=== PATIENT | female | born 1960 | race Caucasian/White ===

== ENCOUNTER 2024-02-04 04:01 | Observation (INO) ==
[2024-02-04] MEDS: hydrALAZINE HCL 20 MG/ML VIAL IV STA ×2 (04:44→05:15)
--- NOTE | 2024-02-04 04:51 | Emergency Department Note ---
History of Present Illness General Chief complaint: Hypertension Time Seen by Provider: 02/04/24 04:12 History of Present Illness Maximum Pain Intensity: 8 Patient is a 62-year-old female with past medical history significant for hypertension, dyslipidemia, asthma, who presents to the emergency department accompanied by her for evaluation of jaw pain, headache and hypertension. She states that her symptoms started acutely about 2 hours ago. She states the jaw pain woke her from sleep at 0200. It was a throbbing pain in the left jaw that radiated to the right. She reports a bitemporal headache. The pain was severe enough that it kept her from sleeping. She rated her discomfort a 8/10. suggested that she check her blood pressure, she used a home BP monitor, and her systolic blood pressure was over 200. She took her irbesartan 150 mg at that time. She did not take any additional medications. She did not feel improved and thus presented to the emergency department. She does not have any chest pain. No shortness of breath. No nausea, vomiting, diaphoresis or near syncope. She was visiting in [facility] last week. She reports that she was short on her BP medications and for 2 days, took a half dose, to make her medications last until she returned to [place]. She reports that she has been having some right back and right lower quadrant abdominal pain for the last week but this has gotten better. Recent diagnosis of a kidney stone. She traveled here from [place] at the end of December. She is here with her who is working at the [employer]. She does have a history of hypertension. She does also use hydrochlorothiazide every other day. No cough, hemoptysis or shortness of breath. She was hospitalized with mycoplasma pneumonia couple of months ago. Home Medications Medication Instructions Recorded Confirmed Type LEVOTHYROXINE SODIUM (SYNTHROID) 100 mcg PO DAILY ##0 08/03/15 History Allergies Allergy/AdvReac Type Severity Reaction Status Date / Time latex Allergy Unknown UNKNOWN Verified 08/03/15 23:56 Sulfa (Sulfonamide Allergy Unknown UNKNOWN Verified 08/03/15 23:58 Antibiotics) CONTROL PILLS Allergy Unknown Uncoded 05/27/04 00:24 HEPATITIS B Allergy Unknown Uncoded 05/27/04 00:24 Past Med/Surg History Problem List (Updated 02/04/24 @ 06:57 by Ellie Morrissey) Hypertensive urgency (Acute) Medical History (Updated 02/04/24 @ 06:57 by Ellie Morrissey) Hypothyroidism Asthma Dyslipidemia Hypertension Surgical History (Updated 02/04/24 @ 04:51 by Ellie Morrissey) History of cholecystectomy Social History Smoking Status: Never smoker Preferred Language: Slovak Current Living Situation: Family current occupational status: employed 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 [employer] Feels Safe at Home: Yes Review of Systems A total of 10 systems reviewed and were otherwise negative Physical Exam Vital Signs Vital Signs - 24 hr 02/04/24 04:05 02/04/24 04:09 02/04/24 04:43 Temperature 36.5 C Temperature Source Temporal Artery Scan Pulse Rate 80 67 Pulse Rate [Apical] 69 Pulse Rate from SpO2 Sensor Pulse Rhythm Pulse Rhythm [Apical] Pulse Strength [Apical] Respiratory Rate 18 18 Respiratory Effort / Characteristics Non-Labored Non-Labored Spontaneous Respiratory Depth Normal Normal Respiratory Pattern Regular Blood Pressure 202/130 H Blood Pressure [Right Arm] 212/124 H Blood Pressure Mean 154 Blood Pressure Mean [Right Arm] 153 Blood Pressure Position [Right Arm] Lying Pulse Oximetry 96 94 Oxygen Delivery Method Room Air Room Air Sepsis Recent Fever Within 48 Hours Yes Sepsis New/Unexplained Change in Mental Status No Sepsis Action Taken by Nursing No Action Required 02/04/24 05:05 02/04/24 05:09 02/04/24 05:33 Temperature Temperature Source Pulse Rate 67 65 66 Pulse Rate [Apical] Pulse Rate from SpO2 Sensor 65 63 Pulse Rhythm Regular Pulse Rhythm [Apical] Pulse Strength [Apical] Respiratory Rate 24 22 Respiratory Effort / Characteristics Respiratory Depth Respiratory Pattern Blood Pressure 227/107 H 172/92 H Blood Pressure [Right Arm] Blood Pressure Mean 147 118 Blood Pressure Mean [Right Arm] Blood Pressure Position [Right Arm] Pulse Oximetry 96 95 95 Oxygen Delivery Method Room Air Room Air Room Air Sepsis Recent Fever Within 48 Hours Sepsis New/Unexplained Change in Mental Status Sepsis Action Taken by Nursing 02/04/24 05:51 02/04/24 06:42 02/04/24 07:11 Temperature Temperature Source Pulse Rate 65 Pulse Rate [Apical] 91 H Pulse Rate from SpO2 Sensor 62 Pulse Rhythm Pulse Rhythm [Apical] Regular Pulse Strength [Apical] Normal Respiratory Rate 15 24 18 Respiratory Effort / Characteristics Non-Labored Respiratory Depth Normal Respiratory Pattern Regular Blood Pressure 160/93 H Blood Pressure [Right Arm] 164/103 H Blood Pressure Mean 115 Blood Pressure Mean [Right Arm] 123 Blood Pressure Position [Right Arm] Lying Pulse Oximetry 94 98 Oxygen Delivery Method Room Air Sepsis Recent Fever Within 48 Hours Sepsis New/Unexplained Change in Mental Status Sepsis Action Taken by Nursing CONSTITUTIONAL: Mildly uncomfortable but otherwise well-appearing 63-year-old female laying on the gurney. is at the bedside. Blood pressures are in the 200/100 systolic. EYES: Pupils equal, round, reactive to light and accommodation. EOMs intact without nystagmus. Sclera are anicteric. ENT: Tympanic membranes intact, with normal landmarks. External canals are clear. Oral and nasopharynx are clear. Mucous membranes are moist, no lesions, tongue and gums appear normal. NECK: No bruits auscultated. Supple without lymphadenopathy. No thyromegaly. No meningeal signs. Full active range of motion without discomfort. CARDIOVASCULAR: Regular rate and rhythm. No carotid bruits auscultated. No JVD. Peripheral pulses easy to palpable. RESPIRATORY: Breath sounds equal and clear to auscultation. GI: Bowel sounds are present. Abdomen is soft, nontender, nondistended. No organomegaly. No pulsatile masses. No guarding or rebound. MUSCULOSKELETAL: Full range of motion of extremities x 4 with good strength. No cyanosis, edema, joint tenderness or swelling. No deformity. INTEGUMENTARY: No lesions or rash, normal skin turgor. NEUROLOGICAL: Alert, oriented, and cooperative. Cranial nerves, sensation and strength grossly intact. Normal gait. Course Course The patient was seen and assessed as above. External medical records are reviewed. She has no old records at our facility for comparison. She presents the emergency department for evaluation of hypertension, jaw pain and headache. She is markedly hypertensive upon arrival. IV lock was initiated and laboratory studies were collected. CBC with differential, CMP, TSH, troponin and urinalysis were collected. EKG and chest x-ray were obtained. Noncontrast CT scan of the head was performed. Patient was ordered hydralazine 10 mg IV x 2. Patient discussed with Dr. Diaz attending physician. Diagnostics, as interpreted by me: Laboratory studies: Normal white count 8000 without left shift. No anemia. No thrombocytopenia. No significant electrolyte imbalance. Renal functions are normal. No transaminitis. Initial high-sensitivity troponin within normal limits. TSH is indicative of a euthyroid state. Urine microscopy notes hematuria. ECG: Normal sinus rhythm, 69 bpm. Incomplete right bundle tony block. Nonspecific ST segment abnormalities. No acute ischemic changes. No old EKGs available for review. Cardiac Monitoring: Cardiac monitoring: An order was placed for continuous cardiac monitoring. The monitor shows a NSR in the 60s per my interpretation. Imaging studies: Chest x-ray clear, no consolidation or effusion. CT scan of the head without contrast no mass or bleed. Nursing staff contacted me when patient was brought back from CT that she was feeling nauseous. She was ordered Zofran 4 mg IV. She had persistent nausea and dry heaves after the first dose of Zofran was given second dose of Zofran 4 mg IV. Blood pressure did respond to the hydralazine, was running in the 160s over 90s. Patient was reassessed. She was feeling "woozy" and while headache was a little bit better she is still having jaw pain. She is having some nausea from postnasal drip. I did review test results with her and her spouse. A second, 2-hour troponin was collected at 0630, and is pending at the time of dictation. While blood pressure has improved, she is still symptomatic. Symptoms and presentation are concerning enough that I feel that she would benefit from inpatient care/evaluation. She was in agreement. Patient discussed with ED patient case coordinator and [facility]. Patient was reviewed with Dr. Zhong, he will sign out to the [facility] hospitalist. Differential diagnosis: acute myocardial infarction, acute coronary syndrome, cardiomyopathy, congestive heart failure, asthma exacerbation, acute intracranial bleed, hypertensive urgency/emergency, electrolyte/metabolic/endocrinologic abnormality, among others. Administered Medications Discontinued Medications Hydralazine HCl (Hydralazine Hcl 20 Mg/Ml Vial) 10 mg IV ONCE STA Stop: 02/04/24 04:36 Last Admin: 02/04/24 04:44 Dose: 10 mg Documented By: Hydralazine HCl (Hydralazine Hcl 20 Mg/Ml Vial) 10 mg IV NOW STA Stop: 02/04/24 05:13 Last Admin: 02/04/24 05:15 Dose: 10 mg Documented By: Ondansetron HCl (Ondansetron Inj 2 Mg/Ml 2 Ml Vial) 4 mg IV NOW STA Stop: 02/04/24 05:29 Last Admin: 02/04/24 05:32 Dose: 4 mg Documented By: TRISTIAN Ondansetron HCl (Ondansetron Inj 2 Mg/Ml 2 Ml Vial) 4 mg IV NOW STA Stop: 02/04/24 06:25 Last Admin: 02/04/24 06:27 Dose: 4 mg Documented By: Medical Decision Making Differential Diagnosis See ED Course. Medical Records Attestation: I reviewed the patient's medical records. Home Medications Current Medication List: was personally reviewed by me Laboratory Data Attestation: I reviewed the patient's lab results. 02/04/24 04:33 02/04/24 04:33 Lab Results 02/04/24 02/04/24 Range/Units 04:33 04:36 WBC 8.09 (4.8-10.8) K/ul RBC 4.47 (4.20-5.40) M/uL Hgb 13.8 (12.0-16.0) g/dl Hct 39.3 (37.0-47.0) % MCV 87.9 (80.0-100.0) fL MCH 30.9 (25.0-34.0) pg MCHC 35.1 (32.0-36.0) g/dL RDW Std Deviation 44.7 (36.4-46.3) fL RDW Coeff of Tyson 15.9 H (11.5-14.5) % Plt Count 278 (130-400) K/uL MPV 9.8 (9.4-12.4) fL Immature Gran % (Auto) 0.2 % Neut % (Auto) 67.2 % Lymph % (Auto) 20.0 % Tompkins % (Auto) 12.0 % Eos % (Auto) 0.0 % Baso % (Auto) 0.6 % Neut # (Auto) 5.43 (1.40-6.50) K/uL Lymph # (Auto) 1.62 (1.20-3.40) K/uL Tompkins # (Auto) 0.97 H (0.11-0.59) K/uL Eos # (Auto) 0.00 (0.00-0.50) K/uL Baso # (Auto) 0.05 (0.00-0.20) K/uL Immature Gran # (Auto) 0.02 (0.01-0.20) K/uL Sodium 138 (136-145) mmol/L Potassium 3.7 (3.5-5.1) mmol/L Chloride 103 (98-107) mmol/L Carbon Dioxide 27 (21-32) mmol/L Anion Gap 8 (3-11) BUN 16 (6-23) mg/dl Creatinine 0.67 (0.6-1.2) mg/dl Est Cr Clr Drug Dosing 94.2 ml/min Est GFR ( Amer) 107.7 ml/min Est GFR (Non-Af Amer) 92.9 ml/min BUN/Creatinine Ratio 23.9 H (10-20) Glucose 117 H (70-99(Fasting)) mg/dl Calcium 9.9 (8.6-10.3) mg/dl Total Bilirubin 0.6 (0.2-1.0) mg/dl AST 32 (13-39) U/L ALT 40 (7-52) U/L Alkaline Phosphatase 141 H (34-104) U/L Troponin I High Sens 2.8 (0-14) pg/ml Total Protein 8.1 (6.0-8.3) gm/dl Albumin 4.7 (3.4-5.0) gm/dl Globulin 3.4 (2.5-4.0) gm/dl Albumin/Globulin Ratio 1.4 (0.9-2) TSH 2.427 (0.300-4.500) uIu/ml Urine Color Yellow Urine Appearance Clear (Clear) Urine pH 6.0 (4.5-7.5) Ur Specific [place] 1.012 (1.000-1.030) Urine Protein 1+ H (Negative) Urine Glucose (UA) Negative (Negative) Urine Ketones Negative (Negative) Urine Blood 2+ H (Negative) Urine Nitrite Negative (Negative) Urine Bilirubin Negative (Negative) Urine Urobilinogen Negative (Negative) Ur Leukocyte Esterase Negative (Negative) Urine WBC (Auto) 0-5 (0-5) /hpf Urine RBC (Auto) 11-20 H (0-2) /hpf U Hyaline Cast (Auto) 0-2 (0-2) /lpf U Epithel Cells (Auto) 0-2 (0-2) /hpf Urine Bacteria (Auto) None Seen (None Seen) Imaging Data Attestation: I personally reviewed and interpreted this imaging study as follows: Radiologist's Impression: Head CT 02/04/24 04:54 Exam(s): CT HEAD Without Contrast EXAM: CT Head Without Intravenous Contrast CLINICAL HISTORY: Reason for exam: headache, hypertension. TECHNIQUE: Axial computed tomography images of the head/brain without intravenous contrast. Automated exposure control was utilized for the study. A dose lowering technique was utilized adhering to the principles of ALARA. COMPARISON: No relevant prior studies available. FINDINGS: Brain: Unremarkable. No hemorrhage. No significant white matter disease. No edema. Ventricles: Unremarkable. No ventriculomegaly. Bones/joints: Unremarkable. No acute fracture. Soft tissues: Unremarkable. Sinuses: Unremarkable as visualized. No acute sinusitis. Mastoid air cells: Unremarkable as visualized. No mastoid effusion. IMPRESSION: Normal head/brain CT. Electronically signed by: Silvino Terrell MD 02/04/24 06:38 AM MDM Narrative See ED Course. Impression & Plan Hypertensive urgency Discharge Plan Visit Data Chief Complaint: Hypertension ED Provider: Mary Diaz ED Midlevel Provider: Ellie Morrissey Discharge Problem: Hypertensive urgency Patient Disposition: Being Evaluated by Hospitalist Forms Stand Alone Forms: My [facility] Jade Magnet Prescriptions Prescriptions: No Action LEVOTHYROXINE SODIUM (SYNTHROID) 100 MCG tablet 100 mcg PO DAILY Qty: 0 Referrals Referrals: PCP,NO [Primary Care Provider] -
[2024-02-04 05:03] LABS: Basophils # (auto) 0.05 K/uL (0.00-0.20); Basophils % (auto) 0.6 %; Hematocrit (blood only) 39.3 % (37.0-47.0); Hemoglobin 13.8 g/dl (12.0-16.0); Immature Granulocytes # (auto) 0.02 K/uL (0.01-0.20); Immature Granulocytes % (auto) 0.2 %; Lymphocytes # (auto) 1.62 K/uL (1.20-3.40); Mean Corpuscular Hemoglobin 30.9 pg (25.0-34.0); Mean Corpuscular Hgb Conc 35.1 g/dL (32.0-36.0); Mean Corpuscular Volume 87.9 fL (80.0-100.0); Mean Platelet Volume 9.8 fL (9.4-12.4); Monocytes # (auto) 0.97 K/uL (0.11-0.59); Neutrophils # (auto) 5.43 K/uL (1.40-6.50); Neutrophils % (auto) 67.2 %; Platelet Count 278 K/uL (130-400); RDW Coefficient of Variation 15.9 % (11.5-14.5); RDW Standard Deviation 44.7 fL (36.4-46.3); Red Blood Count 4.47 M/uL (4.20-5.40); White Blood Count 8.09 K/ul (4.8-10.8)
[2024-02-04 05:05] LABS: Appearance Urine Clear (Clear); Bacteria Urine Automated None Seen (None Seen); Bilirubin Urine Negative (Negative); Blood Urine 2+ (Negative); Cast Urine Automated 0-2 /lpf (0-2); Color Urine Yellow; Epithelial Cell Urine Auto 0-2 /hpf (0-2); Glucose Urine UA Negative (Negative); Ketones Urine Negative (Negative); Leukocyte Esterase Urine Negative (Negative); Nitrite Urine Negative (Negative); Protein Urine 1+ (Negative); Specific Gravity Urine 1.012 (1.000-1.030); Urobilinogen Urine Negative (Negative); WBC Urine Automated 0-5 /hpf (0-5)
[2024-02-04 05:21] LABS: Albumin Globulin Ratio 1.4 (0.9-2); Albumin Level 4.7 gm/dl (3.4-5.0); BUN Creatinine Ratio 23.9 (10-20); Bilirubin,Total 0.6 mg/dl (0.2-1.0); Calcium 9.9 mg/dl (8.6-10.3); Creatinine Clr Calc Pharmacy 94.2 ml/min; Est GFR (African American) 107.7 ml/min; Est GFR (Non-African American) 92.9 ml/min; Globulin 3.4 gm/dl (2.5-4.0); Potassium 3.7 mmol/L (3.5-5.1); Total Protein 8.1 gm/dl (6.0-8.3)
[2024-02-04 05:26] LABS: Troponin I High Sensitivity 2.8 pg/ml (0-14)
[2024-02-04] MEDS: ONDANSETRON INJ 2 MG/ML 2 ML VIAL IV STA ×2 (05:32→06:27)
[2024-02-04 05:36] LABS: Thyroid Stimulating Hormone 2.427 uIu/ml (0.300-4.500)
--- NOTE | 2024-02-04 06:39 | CT Scan Report ---
Exam(s): CT HEAD Without Contrast EXAM: CT Head Without Intravenous Contrast CLINICAL HISTORY: Reason for exam: headache, hypertension. TECHNIQUE: Axial computed tomography images of the head/brain without intravenous contrast. Automated exposure control was utilized for the study. A dose lowering technique was utilized adhering to the principles of ALARA. COMPARISON: No relevant prior studies available. FINDINGS: Brain: Unremarkable. No hemorrhage. No significant white matter disease. No edema. Ventricles: Unremarkable. No ventriculomegaly. Bones/joints: Unremarkable. No acute fracture. Soft tissues: Unremarkable. Sinuses: Unremarkable as visualized. No acute sinusitis. Mastoid air cells: Unremarkable as visualized. No mastoid effusion. IMPRESSION: Normal head/brain CT. Electronically signed by: Silvino Terrell MD 02/04/24 06:38 AM
--- NOTE | 2024-02-04 08:06 | XRay Report ---
XR chest 1V portable HISTORY: 63 years-old Female Hypertension COMPARISON: 08/04/2015 TECHNIQUE: AP view of the chest FINDINGS: Cardiomediastinal and hilar silhouettes are within normal limits. Lungs are clear. No pneumothorax or pleural effusion. Spondylotic spurring of the spine. IMPRESSION: No acute process. ACT 112: Negative or not required by law. The above report was generated using voice recognition software. It may contain grammatical, syntax o r spelling errors. Electronically signed by: Kirby Aragon M.D. 02/04/2024 8:05 AM
[2024-02-04] MEDS ORDERED: ALBUTEROL HFA 8 GM INHALER INH PRN (08:10)
--- NOTE | 2024-02-04 08:22 | History & Physical Report ---
Date of Service February 04, 2024 Assessment & Plan (1) Hypertensive urgency: (2) Atypical angina: (3) Asthma: Plan Patient presents with uncontrolled hypertension with evidence of endorgan symptoms. Also patient may have some symptoms of atypical angina over the last several weeks. Patient is a high risk for acute coronary syndrome based on her history. Patient needs hospital level monitoring and further interventions Admit to a monitored unit Monitor on telemetry Increase irbesartan dosing as well as hydrochlorothiazide dosing to 325 mg respectively Add Norvasc for better blood pressure control Echocardiogram in the morning Stress test in the morning Continue her home Synthroid Continue inhalers as needed Check lipid profile and hemoglobin A1c History of Present Illness Chief Complaint: Acute headache, jaw pain, shortness of breath Primary Care Provider: NO PCP Patient is a 63-year-old female with known history of hypertension presents to the emergency room after being awakened from sleep with severe jaw pain and headache. In the emergency department was noted to have severe hypertension. She was treated with hydralazine in the emergency room. Her symptoms improved but still was quite weakened and fatigued and referred for further evaluation. Time my evaluation patient is quite drowsy. Essentially fatigued from the events of this morning. She states that her headache and jaw pain has improved. She reports that over the past 6 weeks she has been having some intermittent symptoms. She was treated for a "mycoplasma pneumonia" about 6 weeks ago. Never really felt that she improved from that. She does admit to some dyspnea on exertion ever since then. She states sometime earlier this year she had an episode where she had some significant palpitations and chest discomfort. She did not seek medical attention at that time. Family history of arrhythmias but no known history of heart attack within her family. She is herself has never had a stress test or echocardiogram. She does have known hypertension. She reports that has been difficult to control recently. She also reports that last week she was in [place] did not take enough of her pills and only took a half dose of her irbesartan for a couple days. Patient is here in [place] visiting from [place]. Apparently they traveled back and forth fairly frequently. She does not have any established physicians here in [place]. She does have a history of kidney stones and hypothyroidism. She denies any swelling in her legs. She states her appetite has been good. She denies any problems with her bowels or bladder. She denies any fever or chills. She does admit to some paroxysmal nocturnal dyspnea. No orthopnea. Allergies Allergy/AdvReac Type Severity Reaction Status Date / Time latex Allergy Unknown UNKNOWN Verified 08/03/15 23:56 Sulfa (Sulfonamide Allergy Unknown UNKNOWN Verified 08/03/15 23:58 Antibiotics) CONTROL PILLS Allergy Unknown Uncoded 05/27/04 00:24 HEPATITIS B Allergy Unknown Uncoded 05/27/04 00:24 Home Medications Medication Instructions Recorded Confirmed Type LEVOTHYROXINE SODIUM (SYNTHROID) 100 mcg PO DAILY ##0 08/03/15 History Past Med/Surg History Problem List (Updated 02/04/24 @ 08:20 by Jay Jay [place] DO) Atypical angina Hypertensive urgency (Acute) Medical History Hypothyroidism Asthma Dyslipidemia Hypertension Surgical History History of cholecystectomy Social History Smoking Status: Never smoker Preferred Language: Indonesian Current Living Situation: Family current occupational status: employed 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 Sclera clear Neck: Soft, no adenopathy Lungs: Clear to auscultation, decreased, no wheezes rales or rhonchi, CV: S1-S2, regular, no murmur Abdomen: Soft, nontender, nondistended Extremities: No significant edema Musculoskeletal: No significant joint tenderness Neuro: No focal deficits Psych: Cooperative, normal mood Results & Data Results & Data Vital Signs (Past 12 Hours) Vital Signs Temp Pulse Pulse Resp BP BP Pulse Ox 02/04/24 07:11 91 H 18 164/103 H 98 02/04/24 06:42 24 02/04/24 05:51 65 15 160/93 H 94 02/04/24 05:33 66 22 172/92 H 95 02/04/24 05:09 65 24 227/107 H 95 02/04/24 05:05 67 96 02/04/24 04:43 69 18 212/124 H 94 02/04/24 04:09 67 02/04/24 04:05 36.5 C 80 18 202/130 H 96 O2 Del Method 02/04/24 07:11 Room Air 02/04/24 06:42 02/04/24 05:51 02/04/24 05:33 Room Air 02/04/24 05:09 Room Air 02/04/24 05:05 Room Air 02/04/24 04:43 Room Air 02/04/24 04:09 02/04/24 04:05 Room Air Diagnostic Findings Reviewed imaging, laboratory and diagnostic studies. Pertinent findings as below. Personally reviewed EKG sinus rhythm, incomplete right bundle branch block. This is new when compared to [address]-T wave changes Personally reviewed chest x-ray no acute focal infiltrates Head CT unremarkable Troponins negative x 2 TSH therapeutic CBC and electrolytes unremarkable Glucose 141
[2024-02-04 08:49] LABS: Chol HDL Ratio 3.1 (0-5)
[2024-02-04 08:58] LABS: Estimated Average Glucose 120 mg/dl; Hemoglobin A1C 5.8 % (4.5-5.6)
[2024-02-04] MEDS: ASPIRIN 81 MG ECTAB PO ONE (11:07)
[2024-02-04] MEDS ORDERED: ALUMINUM/MAGNESIUM SUSP 30 ML UDC PO PRN (11:19)
[2024-02-04] MEDS ORDERED: NITROGLYCERIN SL 0.4 MG/TAB TAB SL PRN (11:19)
[2024-02-04] MEDS ORDERED: hydrALAZINE HCL 20 MG/ML VIAL IV PRN (11:19)
[2024-02-04] MEDS ORDERED: MoRPHine SULFATE 2 MG/ML CARP IV PRN (11:19)
[2024-02-04] MEDS: ACETAMINOPHEN 325 MG TAB PO PRN (11:46)
[2024-02-04] MEDS: hydroCHLOROthiazide 25 MG TAB PO SCH (11:47)
[2024-02-04] MEDS: LEVOTHYROXINE SODIUM 100 MCG TABLET PO SCH (11:47)
[2024-02-04] MEDS: ATORVASTATIN 20 MG TAB PO ONE (11:47)
[2024-02-04] MEDS: amLODIPine BESYLATE 5 MG TAB PO SCH (11:47)
[2024-02-04] MEDS: LOSARTAN POTASSIUM 50 MG TAB PO SCH (11:49)
--- NOTE | 2024-02-04 14:49 | Electrocardiogram Report ---
Test Reason : Blood Pressure : / mmHG Vent. Rate : 069 BPM Atrial Rate : 069 BPM P-R Int : 160 ms QRS Dur : 108 ms QT Int : 390 ms P-R-T Axes : 031 -05 019 degrees QTc Int : 417 ms Normal sinus rhythm Incomplete right bundle branch block Minimal voltage criteria for LVH, may be normal variant Nonspecific ST abnormality Abnormal ECG When compared with ECG of 03-AUG-2015 23:35, Incomplete right bundle branch block is now Present Confirmed by Conner Christnia ([id number]) on 02/04/2024 2:49:05 PM Referred By: REFERRED SELF Confirmed By:Conner Christina
[2024-02-05] MEDS ORDERED: oxyCODONE HCL IR 5 MG TAB (IMMEDIATE RELEASE) PO PRN (01:36)
[2024-02-05] MEDS: oxyCODONE HCL IR 5 MG TAB (IMMEDIATE RELEASE) PO PRN (01:44)
--- NOTE | 2024-02-05 04:42 | CT Scan Report ---
Exam(s): CT HEAD Without Contrast EXAM: CT Head Without Intravenous Contrast CLINICAL HISTORY: Reason for exam: worsening george, htn. TECHNIQUE: Axial computed tomography images of the head/brain without intravenous contrast. Automated exposure control was utilized for the study. A dose lowering technique was utilized adhering to the principles of ALARA. COMPARISON: Comparison made to prior head CT from February 04, 2024. FINDINGS: Brain: Unremarkable. No hemorrhage. No significant white matter disease. No edema. Ventricles: Unremarkable. No ventriculomegaly. Bones/joints: Unremarkable. No acute fracture. Soft tissues: Unremarkable. Sinuses: Chronic right ethmoid sinusitis. No acute sinusitis. Mastoid air cells: Unremarkable as visualized. No mastoid effusion. IMPRESSION: No evidence of acute intracranial pathology. Electronically signed by: Chantel Kwon MD 02/05/24 04:41 AM
[2024-02-05] MEDS: ASPIRIN 81 MG ECTAB PO SCH (09:00)
[2024-02-05] MEDS: ATORVASTATIN 20 MG TAB PO SCH (09:09)
[2024-02-05] MEDS: ONDANSETRON INJ 2 MG/ML 2 ML VIAL IV PRN (09:26)
[2024-02-05] MEDS ORDERED: LORazepam 0.5 MG TAB PO PRN (12:19)
--- NOTE | 2024-02-05 12:24 | Hospitalist Progress Note ---
Date of Service February 05, 2024 Assessment & Plan (1) Hypertensive urgency: (2) Atypical angina: (3) Asthma: (4) Anxiety about health: (5) Tension headache: (6) Cervical somatic dysfunction: Plan Patient admitted with hypertensive urgency and concerns for atypical angina. Ja w pain is completely resolved. Continue concern for possible atypical angina Echocardiogram showed no significant wall motion abnormalities, unfortunately unable to do stress test today due to fact that patient had some coffee this morning. Strict orders for no caffeine, reschedule stress test for tomorrow Patient's blood pressure is significantly improved with current medical regimen, continue Heating pad for patient's cervical somatic dysfunction and tension headache Ativan as needed for anxiety and tension headache Reassured patient to date her heart continues to look good. She would be much more confident going home if she gets the stress test done here tomorrow. Admission and Anticipated Discharge Date Admission Date: February 04, 2024 Subjective Patient with complaints of classic tension headache type symptoms. Now reports that she rode the [employer] bus from [facility] to [place] and was uncomfortable ride for her. Admits to a lot of stress and anxiety and tension with her travel across the and into [place]. No more jaw pain that has resolved. Physical Exam Physical Exam: Constitutional: Alert HEENT: Mucous membranes moist. Lungs: Clear to auscultation, decreased, no wheezes rales or rhonchi CV: S1-S2, regular Abdomen: Soft, nontender, nondistended Extremities: No significant edema Neuro: No focal deficits Musculoskeletal: Cervical paravertebral musculature tenderness, somatic dysfunction, ropiness, bogginess and decreased range of motion Psych: Cooperative, anxious Results & Data Results & Data Vital Signs (Past 12 Hours) Vital Signs Temp Pulse Resp BP BP Pulse Ox O2 Del Method 02/05/24 11:15 36.8 C 63 17 94 Room Air 02/05/24 08:59 126/87 137/83 02/05/24 07:08 36.7 C 62 18 146/87 H 95 Room Air 02/05/24 03:09 37.0 C 70 18 142/85 H 95 Room Air 02/05/24 00:51 142/89 H Diagnostic Findings Reviewed imaging, laboratory and diagnostic studies. Pertinent findings as below. Repeat head CT negative Echocardiogram, normal ejection fraction, no wall motion abnormalities
[2024-02-05] MEDS: diazePAM 5 MG/ML 10ML VIAL IV STA (15:59)
[2024-02-05] MEDS: SODIUM CHLORIDE 0.9% 1,000 ML IV SCH (15:59)
[2024-02-05] MEDS: dexAMETHasone 6 MG in SYRINGE 0 ML IV ONE (16:07)
[2024-02-05] MEDS: PROCHLORPERAZINE 10 MG in SYRINGE 8 ML IV PRN (16:28)
[2024-02-06] MEDS ORDERED: REGADENOSON 0.4 MG/5 ML SYR IV ONE (09:52)
--- NOTE | 2024-02-06 15:29 | Discharge Summary ---
Discharge Summary Date of Service February 06, 2024 Principal Dx & Hospital Course #1 = Principal Diagnosis (1) Hypertensive urgency: (2) Cervical somatic dysfunction: (3) Anxiety about health: (4) Tension headache: (5) ALEXIS on CPAP: (6) Asthma: (7) Prediabetes: Plan Patient presented emergency room with jaw pain and hypertensive urgency. Concern that this may be atypical angina presentation. Patient was admitted to the hospital. She was given initially some IV medications for her blood pressure which improved her symptoms. She was then transition to oral antihypertensive medications and her blood pressure became quite easily controlled. Patient underwent echocardiogram which showed no wall motion abnormalities and normal ejection fraction. Patient also underwent nuclear stress testing which was negative for signs of ischemia. During her hospitalization additional history was obtained that she had done some significant traveling and from [place] to [place] on the [employer] bus. She continued to have tension-like headache symptoms despite controlled blood pressure. Further exam revealed she had somatic dysfunction of her cervical spine. Tylenol and heating pad significantly improved the symptoms. Also learned that she is supposed to be on a CPAP and has obstructive sleep apnea. Unfortunately CPAP is in [place]. This also could be contributing to her uncontrolled hypertension and her headaches. She was strongly encouraged to use her CPAP as soon as she could get that to her or when she returns home. On the day of discharge her jaw pain completely resolved, tension headache and resolve d. No signs of angina or ischemic heart disease. Blood pressure is well- controlled. She be discharged home with outpatient follow-up with her providers and use of her CPAP when she returns home. is at bedside at time of discharge understands the plans for discharge and in agreement Notes For Next Care Provider May need additional adjustments of antihypertensive medications Continue to encourage patient to wear CPAP when available Medication Changes From Visit Irbesartan dose increased Admission HPI Per Admitting Provider Patient is a 63-year-old female with known history of hypertension presents to the emergency room after being awakened from sleep with severe jaw pain and headache. In the emergency department was noted to have severe hypertension. She was treated with hydralazine in the emergency room. Her symptoms improved but still was quite weakened and fatigued and referred for further evaluation. Time my evaluation patient is quite drowsy. Essentially fatigued from the events of this morning. She states that her headache and jaw pain has improved. She reports that over the past 6 weeks she has been having some intermittent symptoms. She was treated for a "mycoplasma pneumonia" about 6 weeks ago. Never really felt that she improved from that. She does admit to some dyspnea on exertion ever since then. She states sometime earlier this year she had an episode where she had some significant palpitations and chest discomfort. She did not seek medical attention at that time. Family history of arrhythmias but no known history of heart attack within her family. She is herself has never had a stress test or echocardiogram. She does have known hypertension. She reports that has been difficult to control recently. She also reports that last week she was in [place] did not take enough of her pills and only took a half dose of her irbesartan for a couple days. Patient is here in [place] visiting from [place]. Apparently they traveled back and forth fairly frequently. She does not have any established physicians here in [place]. She does have a history of kidney stones and hypothyroidism. She denies any swelling in her legs. She states her appetite has been good. She denies any problems with her bowels or bladder. She denies any fever or chills. She does admit to some paroxysmal nocturnal dyspnea. No orthopnea. Admission Exam Per Admitting Provider See H&P Discharge Exam Constitutional: Alert HEENT: Mucous membranes moist. Lungs: Clear to auscultation, decreased, no wheezes rales or rhonchi CV: S1-S2, regular Abdomen: Soft, nontender, nondistended Extremities: No significant edema Musculoskeletal: Cervical musculoskeletal tenderness improved Neuro: No focal deficits Psych: Cooperative, normal mood Updated Medication List Medication Instructions Recorded Confirmed Type atorvastatin 10 mg tablet 10 mg PO HS 02/04/24 02/04/24 History hydrochlorothiazide 25 mg tablet 25 mg PO QAM 02/04/24 02/04/24 History ipratropium bromide 17 See Rx Instructions .Route .COMPLEX 02/04/24 02/04/24 History mcg/actuation HFA aerosol inhaler irbesartan 150 mg tablet 150 mg PO HS 02/04/24 02/04/24 History levothyroxine 100 mcg tablet 100 mcg PO DAILYBB 02/04/24 02/04/24 History (Synthroid) irbesartan 150 mg tablet 300 mg (2 x 150 mg) PO DAILY 30 02/06/24 Rx days #60 tabs Hospital Stay Data Consultations 02/04/24 06:58 ED Decision to Admit Stat Diagnostic Imagining Performed 02/04/24 04:54 CT head/brain wo con Stat 02/05/24 01:39 CT head/brain wo con Stat Reviewed imaging, laboratory and diagnostic studies. Pertinent findings as below. Verbal report from reading body and frame man, stress test negative for ischemia CBC within normal range Basic metabolic profile, electrolytes, renal function within normal range Hemoglobin A1c 5.8% TSH 2.42 Pending Results Patient Have Any Pending Studies at Discharge: No Discharge Instructions Given to Patient (Per Discharging Provider) Strongly recommend you resume wearing your CPAP Total Time Total Time Spent Total Time Spent (In Minutes): 35
--- NOTE | 2024-02-06 16:22 | Myocardial Perfusion Study ---
Date of Service February 06, 2024 Myocardial Perfusion Study k Myocardial Perfusion Study Report One day nuclear medicine technetium 99m Cardiolite myocardial perfusion scan Clinical history: This stress test is being performed because of a chest pain syndrome. Comparison: None Technique: For the stress portion of the study, 30 mCi of technetium 99m Cardiolite IV was injected at 1142 on February 06, 2024. Thirty minutes following the injection, imaging of the heart was performed in multiple projections. For the rest portion of the study, 10.4 mCi of technetium 99m Cardiolite was injected IV at 9:40 a.m. on February 06, 2024. One hour following the injection, imaging of the heart was performed in the same projections. Stress portion: The patient was given 0.4 mg of intravenous Lexiscan while being monitored continuously. The patient did not experience chest discomfort. Baseline EKG notes normal sinus rhythm without abnormalities. There were no significant ST segment changes seen during the protocol. There were no dysrhythmias. Findings: The short axis, vertical long axis, and horizontal long axis images were reviewed in detail. There was normal myocardial perfusion at both stress and rest thus excluding a prior myocardial infarction or evidence of stress induced myocardial ischemia. The left ventricle demonstrates normal systolic function without wall motion abnormalities. The left ventricular ejection fraction is 71%. Conclusions: 1. No scintigraphic evidence of a prior myocardial infarction or stress-induced myocardial ischemia. 2. No exercise-induced chest pain. 3. No EKG changes. 4. Normal left ventricular systolic function without wall motion abnormality. Left ventricular ejection fraction is 71%. [facility] Myocardial perfusion code Procedure Code Procedure 1: Myocardial Perfusion Codes: 26331 Cardiovascular Stress Test, multiple Procedure 2: Myocardial Perfusion Codes: 09830 Cardiovascular Stress Test, supervision only Procedure 3: Myocardial Perfusion Codes: 83485 Cardiovascular Stress Test, interpretation and report
== END 2024-02-06 16:05 | disposition home or self-care (01) ==
LOC: SUATTDRO → EDINP 04:01 → ED 04:01 → 2S 10:05